=== PATIENT | male | born 1950 | race Caucasian/White ===

== ENCOUNTER → 2019-05-25 | Outpatient (CLI) | payer MEDICARE | LOC: GMAE 10:37 | PROVIDERS: ATTEND Family Medicine | DX: I10 Essential (primary) hypertension (principal); Z12.5 Encounter for screening for malignant neoplasm of prostate | CPT/HCPCS: 84443; G0103 ==

== ENCOUNTER → 2019-07-13 | Outpatient (CLI) | payer MEDICARE ==
--- NOTE | 2019-07-14 12:58 | US ---
US THYROID CLINICAL STATEMENT: NODULE. No palpable mass. No prior thyroid surgery or medical therapy. COMPARISON: None TECHNIQUE: Transcutaneous scanning, grayscale and Doppler modes. FINDINGS: Size right thyroid lobe: 4.7 x 2.7 x 2.5 cm Size left thyroid lobe: 4.9 x 2.2 x 1.9 cm Size isthmus: 0.21 cm Estimated total number of nodules greater than or equal to 1 cm: 3.. Heterogeneous gland. No distinct cyst, no large calcifications, no parenchymal edema, no overlying skin changes. Nodule 1: Size: 2.4 x 1.8 x 1.3 cm Location: Left Lower Composition: solid or almost completely solid: 2 points Echogenicity: isoechoic: 1 point Shape: wider than tall: 0 points Margins: smooth: 0 points. Minimal vascularity on the margin. Echogenic foci: none: 0 points ACR Total Points: 3; ACR TI-RADS risk category: TR3 - mildly suspicious nodule. Nodule 2: Size: 1.8 x 1.4 x 1.2 cm Location: Right Lower Composition: solid or almost completely solid: 2 points Echogenicity: isoechoic: 1 point Shape: taller than wide: 3 points Margins: smooth: 0 points Echogenic foci: none: 0 points ACR Total Points: 6; ACR TI-RADS risk category: TR4 - moderately suspicious nodule. Nodule 3: Size: 1.7 x 1.2 x 0.7 cm Location: Right Mid Composition: solid or almost completely solid: 2 points Echogenicity: hypoechoic: 2 points Shape: wider than tall: 0 points Margins: ill-defined: 0 points Echogenic foci: none: 0 points ACR Total Points: 4; ACR TI-RADS risk category: TR4 - moderately suspicious nodule. No dominant solid mass or distinct cyst in the surrounding soft tissues. IMPRESSION: 1. Nodule 1: ACR TI-RADS 2017 Category TR3. Recommend: Follow-up ultrasound in 1 year. Also in 3 years and 5 years.. Recommendations based upon [facility] [employer] [facility] recommendations and ACR TI-RADS 2017 guidelines. Please see below*. 2. Nodule 2: ACR TI-RADS 2017 Category TR 3. Recommend: Follow-up ultrasound in 1 year.. Also in 3 years and 5 years. 3. Nodule 3: ACR TI-RADS 2017 Category TR 4. Recommend: Ultrasound-guided fine needle aspiration 4. Soft tissue around the thyroid gland is unremarkable. *ACR TI-RADS 2017 Recommendations for imaging follow-up of nodules: TR1: No FNA or follow up TR2: No FNA or follow up TR3: FNA if >/= 2.5 cm, follow up if 1.5 - 2.4 cm in 1, 3, and 5 years TR4: FNA if >/= 1.5 cm, follow up if 1.0 - 1.4 cm in 1, 2, 3, and 5 years TR5: FNA if >/= 1.0 cm, follow up if 0.5 - 0.9 cm every year for 5 years ACR TI-RADS recommends that no more than two nodules with the highest ACR TI-RADS total point should be biopsied and no more than four nodules should be followed. These recommendations do not apply to patients with increased risk for thyroid cancer or patients with symptomatic thyroid disease. Electronically signed by: Mat Bhandari MD 07/14/2019 12:56 PM CDT
== END ==
LOC: US 11:34
PROVIDERS: ATTEND Family Medicine
DX: E04.1 Nontoxic single thyroid nodule (principal)

== ENCOUNTER → 2019-09-17 | Outpatient (CLI) | payer MEDICARE | LOC: GMAE 09:51 | PROVIDERS: ATTEND Family Medicine | DX: R00.0 Tachycardia, unspecified (principal); R19.7 Diarrhea, unspecified ==